=== PATIENT | female | born 1960 | race Caucasian/White ===

== ENCOUNTER 2023-01-04 12:28 | Emergency (ER) | payer MEDICAID ==
[~2023-01-04] VITALS: Ht 160 cm; Wt 75.0 kg
[2023-01-04] MEDS ORDERED: ONDANSETRON HCL 4MG/2ML INJ IV STA (12:42)
[2023-01-04] MEDS ORDERED: SODIUM CHLORIDE 0.9% 1,000 ML IV ONE ×2 (12:45)
[2023-01-04 12:46] VITALS: O2SAT 100
[2023-01-04 13:38] LABS: HEMOGLOBIN. 11.8 g/dL (12.0-16.0); MEAN CORPUSCULAR HEMOGLOBIN 32.2 pg (28.0-32.0); MEAN CORPUSCULAR VOLUME 95.2 fL (81.0-99.0); MEAN PLATELET VOLUME 7.4 fl (7.4-10.4); PLATELET 345 x1000/uL (130-400); RED BLOOD CELL COUNT 3.68 mill/uL (4.2-5.4); RED CELL DISTRIBUTION WIDTH 13.9 % (11.6-14.6)
[2023-01-04 13:45] LABS: CHLORIDE 107 mEq/L (98-107)
[2023-01-04 13:49] LABS: PROTHROMBIN TIME 10.9 sec (9.6-11.0)
[2023-01-04] MEDS ORDERED: ONDA4TAB50 PO (14:06)
[2023-01-04 14:23] LABS: PLATELET ESTIMATE NORMAL
[2023-01-04] MEDS ORDERED: ONDANSETRON HCL 4MG/2ML INJ IV NR (15:00)
[2023-01-04 15:45] VITALS: BP 103/68; PULSE 89; RESP 16; TEMP 98.6
== END 2023-01-04 16:25 | disposition home or self-care (01) ==
LOC: ER 12:28
DX: K52.9 Noninfective gastroenteritis and colitis, unspecified (principal); E11.9 Type 2 diabetes mellitus without complications; E78.00 Pure hypercholesterolemia, unspecified
CPT/HCPCS: 99283; 96374; 96361; 80053; 82962; 83690; 85025; 85610; 36415; J2405; J7030